=== PATIENT | female | born 1995 | race Caucasian/White ===

== ENCOUNTER 2024-05-16 07:30 | Emergency (ER) | payer OTHER ==
[~2024-05-16] VITALS: Ht 170.2 cm; Wt 110.0 kg
[2024-05-16 07:35] VITALS: BP 153/89; PULSE 104; RESP 18; TEMP 98.4; O2SAT 98
[2024-05-16] MEDS: ACETAMINOPHEN 325MG TABLET PO ONE (08:23)
[2024-05-16 08:29] LABS: BASOPHILS % 0.6 % (0.0-2.0); EOSINOPHILS % 1.3 % (0.0-5.0); HEMATOCRIT. 40.1 % (36.0-48.0); HEMOGLOBIN. 13.5 g/dL (12.0-16.0); LYMPHOCYTES % 11.5 % (20.0-50.0); MEAN CORPUSCULAR HEMOGLOBIN 30.6 pg (28.0-32.0); MEAN CORPUSCULAR HGB CONC 33.7 g/dL (31.0-37.0); MEAN CORPUSCULAR VOLUME 90.8 fL (81.0-99.0); MEAN PLATELET VOLUME 9.4 fl (7.4-10.4); MONOCYTES % 6.3 % (2.0-8.0); NEUTROPHILS % 80.3 % (40.0-76.0); PLATELET 307 x1000/uL (130-400); RED BLOOD CELL COUNT 4.42 mill/uL (4.2-5.4); RED CELL DISTRIBUTION WIDTH 13.4 % (11.6-14.6); WHITE BLOOD COUNT 15.9 x1000/uL (4.5-11.0)
[2024-05-16 08:37] LABS: HCG SCREEN NEGATIVE
[2024-05-16 08:38] LABS: CHLORIDE 107 mEq/L (98-107); POTASSIUM 4.2 mEq/L (3.5-5.1); SODIUM 142 mEq/L (136-145)
[2024-05-16 08:39] LABS: CARBON DIOXIDE 25 mEq/L (21-32)
[2024-05-16 08:44] LABS: CREATININE 0.8 mg/dL (0.6-1.0); GLUCOSE 115 mg/dL (70-105); UREA NITROGEN BLOOD 11 mg/dL (9-23)
[2024-05-16 08:46] LABS: ALANINE AMINOTRANSFERASE 13 IU/L (10-49); ALBUMIN 4.8 g/dL (3.2-4.8); ASPARTATE AMINOTRANSFERASE 11 IU/L (<34)
[2024-05-16 08:47] LABS: BILIRUBIN TOTAL 0.4 mg/dL (0.1-1.0); PROTEIN TOTAL 7.9 g/dL (6.0-8.3)
[2024-05-16 08:52] LABS: INR 0.9; PARTIAL THROMBOPLASTIN TIME 26.5 sec (23.4-31.0); PROTHROMBIN TIME 10.2 sec (9.6-11.0)
[2024-05-16] MEDS: LIDOCAINE HCL 1% 20ML VIAL INFIL ONE (12:26)
== END 2024-05-16 13:02 | disposition home or self-care (01) ==
LOC: ER 07:30
DX: S81.012A Laceration without foreign body, left knee, initial encounter (principal); W18.30XA Fall on same level, unspecified, initial encounter; Y93.89 Activity, other specified; Y92.89 Other specified places as the place of occurrence of the external cause; Y99.8 Other external cause status
CPT/HCPCS: 99284; 73700; 80053; 84703; 85025; 85610; 85730; 36415; 12002; J3490; A4663

== ENCOUNTER 2024-05-28 08:20 | Emergency (ER) | payer OTHER ==
[~2024-05-28] VITALS: Ht 152.4 cm; Wt 86.2 kg
[2024-05-28 08:24] VITALS: O2SAT 98
[2024-05-28 08:30] VITALS: BP 150/85; PULSE 90; RESP 16; TEMP 98; O2SAT 98
== END 2024-05-28 10:54 | disposition home or self-care (01) ==
LOC: ER 08:26
DX: S81.011D Laceration without foreign body, right knee, subsequent encounter (principal); X58.XXXD Exposure to other specified factors, subsequent encounter
CPT/HCPCS: 99281